=== PATIENT | male | born 1930 | race Caucasian/White ===

== ENCOUNTER → 2017-01-16 | Day surgery (SDC) | payer MEDICARE, BC ==
[~2017-01-16] VITALS: Ht 175.3 cm; Wt 64.6 kg
[~2017-01-16] MED LIST: ASPIRIN EC81 MG PO; AZULFIDINE500 MG PO; DAILY VALUE1 EACH PO; LEVOTHROID(SY175 MCG PO; NORCO 5-325 TA1 EACH PO; PRILOSEC20 MG PO; TYLENOL EXTRA500 MG PO; VITAMIN D1000 UNIT PO
--- NOTE | ~2017-01-16 | OR ---
PATIENT'S NAME: JOSEPH AGUILAR [facility] AGE: 86 Y [address] ROOM: [place] [address] LOCATION: [facility] – [place] ADMIT DATE: 01/16/2017 OR/Procedure Report DISCHARGE DATE: FAMILY PHYSICIAN: ILYA MONTAGUE (MAYLIN) ATTENDING PHYSICIAN: Petr Arenas SURGEON: Petr Arenas MD HEALTH AND WELLNESS ADVISOR: Mal Horan PA-C. DATE OF PROCEDURE: 01/16/2017 REFERRING PHYSICIAN: MD Ricardo. PREOPERATIVE DIAGNOSIS: Symptomatic reducible right inguinal hernia. POSTOPERATIVE DIAGNOSIS: Symptomatic reducible right inguinal hernia. PROCEDURE: Right inguinal hernia with high sac ligation, large ProLoop mesh plug and patch onlay of inguinal floor. ANESTHESIA: IV sedation with 30 mL of 0.5% Marcaine local. SPECIMEN: Hernia sac, not sent. INDICATION: The patient is a pleasant 86-year-old gentleman who has a developing right inguinal hernia. It is moderate in size. It is reducible, causing some discomfort. He wishes operative repair. DESCRIPTION OF PROCEDURE: After informed consent, the patient was taken to the operating room. After IV sedation, the anterior abdominal wall and right groin and scrotum were prepped and draped into a sterile field. A time-out was performed. Local anesthetic infiltrated throughout the course of the procedure. An incision was made above and parallel to the right inguinal ligament carried down through Kelly's fascia to expose the external oblique. We divided the external oblique through the external ring and took down adhesions to identify the ilioinguinal and general femoral nerve retracted out of harm's way. We got circumferential control around the cord structures, split the cremasteric muscles, and isolated the indirect hernia sac. High sac ligation was performed. The medial floor was attenuated. We scored the attenuated aponeuroses and placed a ProLoop large mesh plug into the direct defect, sewed it down to Eber's inferiorly and above to the conjoint tendon. Preshaped keyhole mesh was then laid over the floor and sewed down to the pubic tubercle down to Eber's, transitioned and stitch up to the shelving edge of the inguinal ligament and progressed lateral to the internal ring. Above, it was tacked down to the internal oblique aponeuroses. The nerve and the cord structures went through the defect in the mesh. The external oblique was closed with 2-0 Vicryl, Kelly's with 3-0 Vicryl, and the skin was closed PATIENT'S NAME: JOSEPH AGUILAR [facility] AGE: 86 Y [address] ROOM: [place] [address] LOCATION: [facility] [place] ADMIT DATE: 01/16/2017 OR/Procedure Report DISCHARGE DATE: FAMILY PHYSICIAN: ILYA MONTAGUE ([place]YLIN) ATTENDING PHYSICIAN: Petr Arenas with subcuticular 4-0 Vicryl. Steri-Strips and sterile dressings applied. The patient tolerated the procedure well and transferred to recovery room in stable condition. PETR ARENAS MD WTS/modl /[id number] d: 01/19/17 1523 t: 02/06/17 0837, OPERATIVE SUMMARY
== END | disposition disaster alternative care site (69) ==
LOC: GPOC 01-12 13:00 → GSDC 06:00
PROC: 0YU50JZ Supplement Right Inguinal Region with Synthetic Substitute, Open Approach (ICD-10-PCS; principal; 2017-01-16)
DX: K40.90 Unilateral inguinal hernia, without obstruction or gangrene, not specified as recurrent (principal); K21.9 Gastro-esophageal reflux disease without esophagitis; E03.9 Hypothyroidism, unspecified; Z79.82 Long term (current) use of aspirin; Z79.899 Other long term (current) drug therapy
CPT/HCPCS: C1781; J0690; J1100; J2001; J2405; J7120